=== PATIENT | male | born 2000 | race African-American/Black ===

== ENCOUNTER 2020-08-09 14:21 | Emergency (ER) | payer OTHER ==
--- NOTE | 2020-08-09 15:02 | ED Physician Documentation ---
PD HPI UPPER EXT INJURY - Stated complaint Stated Complaint: LT SHOULDER PX - Chief complaint Chief Complaint: Ext Problem - History obtained from History obtained from: Patient - History of Present Illness Location: Left, Clavicle, Shoulder Type of injury: Twist (had been having some clicking in shoulders and left shoulder pain with ROM for month or so. was seen PCP and to do physical work lightly and some resistance band stretches/strengthening. Was using those today and shoulder had abrupt pain anteriorly. Radiated to left upper arm.). No: Fall Where injury occurred: Home Timing - details: Abrupt onset, Waxing and waning (has had pain left shoulder after use and working out, and then abruptly worse today when doing external rotation with resistance band.) Worsened by: Palpating (anterior shoulder and at distal clavicle. Also hurts with external rotation of shoulder.) Associated symptoms: No: Weakness, Numbness, Swelling Recently seen: Clinic Review of Systems Constitutional: denies: Fever Nose: denies: Rhinorrhea / runny nose, Congestion, Reviewed and negative Throat: denies: Sore throat Cardiac: denies: Chest pain / pressure Respiratory: denies: Dyspnea, Cough Neurologic: denies: Focal weakness, Numbness PD PAST MEDICAL HISTORY - Past Medical History Past Medical History: Yes Cardiovascular: Pulmonary embolism Respiratory: None Neuro: None - Present Medications Home Medications: Ambulatory Orders Medication Instructions Recorded Confirmed Bp Medication 08/09/20 - Allergies Allergies/Adverse Reactions: Allergies Allergy/AdvReac Type Severity Reaction Status Date / Time No Known Drug Allergies Allergy Verified 08/09/20 14:51 PD ED PE NORMAL - Vitals Vital signs reviewed: Yes - General General: Alert and oriented X 3, No acute distress, Well developed/nourished - Neck Neck: Supple, no meningeal sign, No adenopathy - Cardiac Cardiac: RRR, No murmur - Respiratory Respiratory: Clear bilaterally - Abdomen Abdomen: Soft, Non tender - Derm Derm: Normal color, Warm and dry, No rash - Extremities Extremities: No edema, No calf tenderness / cord, Other (left anterior shoulder and distal clavicle area with tenderness, no obvious deformity. No dislocation. No rash nore sores. ROm of the shoulder occurs, but with a clicking sound when he extends arm laterally. ) - Neuro Neuro: Alert and oriented X 3, No motor deficit, Normal speech Results - Vitals Vitals: Vital Signs - 24 hr 08/09/20 08/09/20 14:46 16:05 Temperature 36.5 C Heart Rate 74 77 Respiratory 16 16 Rate Blood Pressure 134/99 H 151/100 H O2 Saturation 100 99 Oxygen O2 Source Room air - Rads (name of study) left shoulder Radiology: Prelim report reviewed (no bony abnormalities.), See rad report PD MEDICAL DECISION MAKING - ED course Complexity details: reviewed results, considered differential, d/w patient Departure - Departure Disposition: 01 Home, Self Care Clinical Impression: Left shoulder strain Qualifiers: Encounter type: initial encounter Qualified Code(s): S46.912A - Strain of unspecified muscle, fascia and tendon at shoulder and upper arm level, left arm, initial encounter Condition: Stable Record reviewed to determine appropriate education?: Yes Instructions: ED Sprain Shoulder Follow-Up: [facility] [Provider Group] Comments: Your x-ray of the shoulder appears normal which was most likely going to be the case. The soft tissue structures such as ligaments and muscles and cartilage in the joint do not show up on x-ray. It does sound likely that you have a strain of some of the muscles in the shoulder girdle. The popping also sounds like some looseness in the joint or possibly some loose cartilage. Gentle range of motion and use of the left arm and shoulder only for the next 5 to 7 days. Light stretching and exercises is still good. Use anti-inflammatories regularly such as ibuprofen 600 mg 3 times a day with food for the next week. To that add Tylenol if needed for pain. Follow-up with your primary care and Ortho at the next available appointments. Forms: Activity restrictions Discharge Date/Time: 08/09/20 16:11
[2020-08-09] MEDS ORDERED: ACETAMINOPHEN 325 MG TABLET PO STA (15:27)
[2020-08-09 16:05] VITALS: BP 151/100
--- NOTE | 2020-08-09 16:09 | XRAY Report ---
PROCEDURE: Shoulder 3 View LT INDICATIONS: pain on ROM, worse when lifting today TECHNIQUE: 3 views of the shoulder were acquired. COMPARISON: None. FINDINGS: Bones: Joint space is maintained. No fractures or dislocations. No suspicious bony lesions. Visuali zed ribs appear intact. Soft tissues: No suspicious soft tissue calcifications. IMPRESSION: Unremarkable left shoulder radiographs. Reviewed by: Kurt Mathews MD on 08/09/2020 3:08 PM [facility] [place] Approved by: Kurt Mathews MD on 08/09/2020 3:08 PM [facility] [place] Station ID: [id number]
== END 2020-08-09 16:11 | disposition home or self-care (01) ==
LOC: ED 14:21
DX: S46.912A Strain of unspecified muscle, fascia and tendon at shoulder and upper arm level, left arm, initial encounter (principal); X50.9XXA Other and unspecified overexertion or strenuous movements or postures, initial encounter; Y93.B9 Activity, other involving muscle strengthening exercises; Y92.009 Unspecified place in unspecified non-institutional (private) residence as the place of occurrence of the external cause
CPT/HCPCS: 73030; 99283; 99284; A9270